=== PATIENT | female | born 1935 | race Caucasian/White ===

== ENCOUNTER 2018-07-06 12:56 | Inpatient (IN) | payer OTHER, MEDICAID ==
[2018-07-06] VITALS (36 sets, daily range): BP systolic 64–168; BP diastolic 31–151
[~2018-07-06] VITALS: Ht 162.6 cm; Wt 85.3 kg
--- NOTE | 2018-07-06 12:50 | NUR ---
PT BIB EMS INTUBATED IN FIELD 7.0 ET TUBE 21CM PT IN FULL ARREST PLACED ON CARESCAPE ON DOCUMENTED SETTINGS ALARMS ARE ON AND AUDIBLE BS CRACKLES PT IN HF NOT ALERT VENT PLUGGED INTO RED OUTLET BMV HOB SPO2 COULD NOT BE OBTAINED JOURNALISM TEACHER DONE Addendum: 07/06/18 at 1358 by Leslye Morales RT SPO2 [id number]
[~2018-07-06 12:56] MED LIST: CARV12.5 PO; LEVO0.1212 PO; METF500T2 PO
--- NOTE | 2018-07-06 13:00 | NUR ---
[facility] MADE CONTACT WITH [facility]--- FULL ARREST WITH 3 ROUNDS OF EPI AND PEA MD NOTIFIED OF PENDING ARRIVAL. PT WAS UNRESPONSIVE WHEN PT GOT TO HOSPITAL WITH [facility] AND CPR WAS IN PROCESS, DOES NOT OPEN EYES, DOES NOT FOLLOW ANY COMMANDS. HOOKED PT TO BEDSIDE MONITOR. CONTINUED CPR. PT LOOKED PALE AND SKIN COOL TO TOUCH. DR. PITT, RT AND RNs ARE AT BEDSIDE.
--- NOTE | 2018-07-06 13:16 | NUR ---
STARTED TO CPR AGAIN, SEE CODE BLUE RECORD.
[2018-07-06] MEDS ORDERED: SODIUM BICARBONATE 8.4% PFS 50 MEQ/50 ML SYR IVP ONE (13:40)
[2018-07-06] MEDS ORDERED: MAG SULF 2000 MG/WATER PREMIX 50 ML IV ONE ×2 (13:40→19:00)
[2018-07-06] MEDS ORDERED: methylPREDNISolone SS 125 MG/2 ML VIAL IVP ONE (13:40)
--- NOTE | 2018-07-06 13:47 | NUR ---
LUNCH BREAK, REPORT GIVEN TO SATINDER PINEDA.
[2018-07-06] MEDS ORDERED: DOPamine 400 MG/D5W PREMIX 250 ML IV ONE ×2 (14:10→20:39)
--- NOTE | 2018-07-06 14:49 | NUR ---
PT BP 60/39, HR 67, O2 SAT 92 %. RR 13. INCREASED DOPAMINE DRIP FROM 5 MCG/KG/MIN TO 10 MCG/KG/MIN.
[2018-07-06 14:54] LABS: MAGNESIUM 1.4 mg/dL (1.8-2.4)
[2018-07-06 15:00] LABS: ALBUMIN 1.5 g/dL (3.4-5.0); ANION GAP 15.8 (8-16); ASPARTATE AMINOTRANSFERASE 118 U/L (15-37); CHLORIDE 100 mmol/L (98-107); CREATININE 0.9 mg/dL (0.6-1.3); GLUCOSE 234 mg/dL (74-106); POTASSIUM 3.8 mmol/L (3.5-5.1); SODIUM SERUM 134 mmol/L (136-145); TOTAL BILIRUBIN 0.3 mg/dL (0.0-1.0); UREA NITROGEN, BLOOD 19 mg/dL (7-18)
[2018-07-06 15:19] LABS: ACETONE, SERUM NEGATIVE (NEGATIVE)
--- NOTE | 2018-07-06 15:31 | NUR ---
INCREASED DOPAMINE FROM 10 MCG/KG/MIN TO 15 MCG/KG/MIN.
[2018-07-06] MEDS ORDERED: NACL 0.9% 1,000 ML IV SCH (15:34)
[2018-07-06] MEDS ORDERED: ACETAMINOPHEN 325 MG TAB PO PRN (15:35)
[2018-07-06] MEDS ORDERED: DOCUSATE SODIUM 100 MG GELCAP PO PRN (15:35)
[2018-07-06] MEDS ORDERED: HYDROcodone/APAP 7.5/325 MG 1 TAB PO PRN (15:35)
[2018-07-06] MEDS ORDERED: ONDANSETRON 4 MG/2 ML VIAL IM/IVP PRN (15:35)
[2018-07-06 15:40] LABS: EOSINOPHILS # (AUTO) 0.1 K/uL (0-0.4); LYMPHOCYTES # (AUTO) 1.5 K/uL (2.5-16.5); WHITE BLOOD COUNT (AUTO) 14.7 K/uL (4.8-10.8)
[2018-07-06 15:46] LABS: BASOPHILS % (AUTO) 0.3 % (0.0-2.0); EOSINOPHILS % (AUTO) 0.7 % (0.0-4.0); HEMATOCRIT 32.3 % (36-48); HEMOGLOBIN 10.1 g/dL (12.0-16.0); LYMPHOCYTES % (AUTO) 10.2 % (20.5-51.1); MEAN CORPUSCULAR HEMOGLOBIN 25 pg (27-31); MEAN CORPUSCULAR HGB CONC 31 g/dL (33-37); MEAN CORPUSCULAR VOLUME 79.9 fL (80-94); MONOCYTES # (AUTO) 0.5 K/uL (0.8-1.0); MONOCYTES % (AUTO) 3.5 % (1.7-9.3); NEUTROPHILS # (AUTO) 12.6 K/uL (1.8-7.7); NEUTROPHILS % (AUTO) 85.3 % (42.2-75.2); PLATELET COUNT (AUTO) 170 K/uL (140-450); RED BLOOD CELL COUNT(AUTO) 4.04 MIL/uL (4.20-5.40); RED CELL DISTRIBUTION WIDTH 15.5 % (11.6-13.7)
--- NOTE | 2018-07-06 15:50 | NUR ---
PT LEFT FOR CT, ACCOMPANIED WITH TWO RTs, SKID STRAPPER, RN, EMT. THEN TRNASFER PT TO ICU BED 5.
[2018-07-06 15:56] LABS: PROTHROMBIN TIME 17.5 secs (10.8-13.4)
--- NOTE | 2018-07-06 16:10 | NUR ---
PT GOT TO ICU, REPORT GIVEN TO LIU PINEDA.
--- NOTE | 2018-07-06 16:15 | NUR ---
RECEIVED PT TRANSFERRED FROM ED VIA RNIXON, REPORT OBTAINED FROM MIRIAM GROSS AT BEDSIDE, PT IS LETHARGIC, PERRL, OPEN EYES TO SHAKING, UNABLE TO FOLLOW COMMANDS, TEMP 91.0 F, HR 93, BP 73/46, RR 27, O2 SAT 90%, FLACC 0, ETT TO VENT WITH SETTING AC/VC FIO2 100%, TV 450, DIMINISHED LUNG SOUND SOLO. SR ON FITTING ROOM INSPECTOR, CAPILLARY REFILL <3 SECONDS, LARGE DISTENDED ABDOMEN NOTED, ACTIVE BOWEL SOUNDS, INCONTINENT WITH CLOUDY LIGHT SABINO URINE VIA GRAVITY, SKIN IS INTACT, COOL IN TOUCH, ANTONIA HUGGER IN PLACE, SEVERE WEAKNESS TO ALL EXTREMITIES, IV SITE TO RIGHT AC, 22GA, PATENT, RUNNING DOPAMINE AT 15MCG/KG/MIN, IV SITE TO LEFT UPPER ARM, 20GA, PATENT AND SL. HOB ELEVATED 30 DEGREES, SAFETY MEASURES IN PLACE, WILL CONTINUE TO MONITOR.
[2018-07-06 16:31] LABS: CHOL/HDL RATIO 4.4 (1-4.5); PHOSPHORUS 5.6 mg/dL (2.5-4.9)
[2018-07-06 16:32] LABS: THYROID STIMULATING HORMONE 6.84 uIU/mL (0.34-3.74)
--- NOTE | 2018-07-06 16:45 | NUR ---
RANGEL CATHETER INSERTED ORDERED.
--- NOTE | 2018-07-06 17:05 | NUR ---
CENTRAL LINE INSERTION CONSENT OBTAINED BY PT'S SON, SIVAKUMAR, DR. NUGENT EXPLAINED THE PROCEDURE TO HIM, HE VERBALIZED UNDERSTANDING AND SIGNED THE CONSENT.
--- NOTE | 2018-07-06 17:12 | NUR ---
DR. JOHANSEN CAME IN TO SEE PT AT BEDSIDE, UPDATED PT'S CONDITION, WILL FOLLOW UP WITH NEW ORDERS.
--- NOTE | 2018-07-06 17:32 | NUR ---
ECHO DONE AT BEDSIDE.
--- NOTE | 2018-07-06 17:40 | NUR ---
TIME OUT FOR CENTRAL LINE INSERTION AT BEDSIDE, DR. NUGENT IS DOING THE PROCEDURE AND DONE AT BEDSIDE, TECH AND RN AT BEDSIDE.
--- NOTE | 2018-07-06 18:18 | NUR ---
Telemarketer Supervisor Note: I was informed by Local Truck Driver Arnulfo there were two family members who alleged they were patient's power of senior attorney health care agents and were arguing. I met with patient's daughter Evelia Elam (speaks Hungarian). She provided me with power of senior attorney health care documents. Documents list her as primary agent (dated on 2014). I explained to her I was going to meet with her brother Naldo Navarro and review his documents as well. She verbalized understanding. I met with patient's son Naldo Navarro (speaks Hungarian), he also provided me with power of senior attorney health care documents. These documents (dated on 2015) indicate he is patient's primary agent. He also provided me with documents that state patient revokes any power of senior attorney health care documents completed prior to 2015. He stated he is in agreement with any family members visiting patient at our hospital and is not prohibiting anyone from visiting. I explained to him that as healthcare providers we believe in allowing all family members to visit patient. I told him to please make effort to put their personal differences aside. He agreed and stated he did not have any concerns at this time. I went back and met with Evelia, I explained to her my conversation with her brother Naldo. As I was speaking with Evelia, patient's other daughter Teagan Alex interrupted my conversation with Evelia and told Evelia she was the reason why patient was in the condition she was in. They both began to argue and insult each other. I instructed them to stop and advised them not to be in the same room to avoid conflict. As Evelia proceeded to leave room, Teagan began to clap her hands and called her "stupid" in Hungarian. Evelia then responded to Teagan by saying she should learn to have manners. I once again told them to stop and explained to them that if they continue to display inappropriate behavior or be disturbing we had the right to request for them to leave hospital and/or take any other necessary action/s to avoid verbal/physical violence from occurring. I encouraged both of them to try to be respectful. They verbalized understanding. I informed both Charge Nurse Joselyn and Local Truck Driver Arnulfo of the above information.
--- NOTE | 2018-07-06 18:43 | NUR ---
CENTRAL LINE INSERTED TO RIGHT INTERJUGULAR VEIN BY DR. NUGENT, X-RAY ORDERED FOR PLACEMENT.
[2018-07-06 18:44] LABS: APPEARANCE,URINE CLEAR (CLEAR); BILIRUBIN,URINE NEGATIVE (NEGATIVE); BLOOD, URINE 2+ (NEGATIVE); COLOR,URINE YELLOW (YELLOW); LEUKOCYTE ESTERASE ,URINE NEGATIVE (NEGATIVE); NITRITE, URINE NEGATIVE (NEGATIVE); UGLUCOSE NEGATIVE (NEGATIVE)
[2018-07-06 18:47] LABS: RBC,URINE 0-5 (RARE) /HPF (0-5); URINE AMORPHOUS URATE 1+ /HPF (None Seen); WBC,URINE 0-5 (RARE) /HPF (0-5)
[2018-07-06] MEDS: CLINDAMYCIN PHOS 600MG/D5W PM 50 ML IV SCH ×2 (18:49→23:34)
[2018-07-06] MEDS ORDERED: DEXTROSE 50% 50 ML SYR IVP PRN (19:00)
[2018-07-06] MEDS ORDERED: LEVOFLOXACIN 500 MG/D5W PREMIX 100 ML IV SCH (19:00)
--- NOTE | 2018-07-06 19:20 | NUR ---
REPORT GIVEN TO PARTS CONSULTANT NURSE AT BEDSIDE FOR CONTINUE OF CARE.
--- NOTE | 2018-07-06 19:30 | NUR ---
RECEIVED BEDSIDE REPORT FROM MORNING NURSE. PATIENT LETHARGIC, OPENS HER EYE WITH PAIN BUT NOT TRACKING. ETT TO VENT WITH AC MODE FIO2 100%, VT 450, RATE 20, PEEP OFF. NGT TO LEFT NARES, PLACEMENT CHECKED. RHONCHI BILATERAL LUNGS SOUND NOTED. RIGHT IJ IN PLACE BUT NOT X RAY CONFIRM YET. PERIPHERAL LINES TO LEFT UPPER ARM 20G AND RIGHT AC 20G WITH DOPAMINE DRIP WITH 15MCG/KG/MIN AND NS 60ML/HR. DISTENDED ABDOMEN NOTED WITH HYPOACTIVE BOWEL SOUND. RANGEL CATH IN PLACE. TEMP 92.7 VIA RECTALLY. WAITING FOR ANTONIA HUGGER. HOB ELEVATED 15 DEGREE, BED IN LOW POSITION. CALL LIGHT WITHIN REACH. WILL CONTINUE TO MONITOR.
[2018-07-06] MEDS: DOPamine 400 MG/D5W PREMIX 250 ML IV SCH (20:53)
[2018-07-06] MEDS: BLOOD GLUCOSE MONITORING 1 DEV DEV FS SCH (20:54)
[2018-07-06] MEDS ORDERED: CALCIUM ACETATE 667 MG TAB NG SCH (23:00)
[2018-07-06] MEDS ORDERED: LACTULOSE 20 GM/30 ML UDC NG SCH (23:00)
[2018-07-06] MEDS ORDERED: HEPARIN PER PHARMACY MC PRN (23:35)
[2018-07-06] MEDS ORDERED: hePARIN / DEXT 5% PREMIX 250 ML IV SCH ×2 (23:35→23:55)
[2018-07-07] VITALS (105 sets, daily range): BP systolic 85–169; BP diastolic 35–89
--- NOTE | 2018-07-07 00:10 | NUR ---
ADMINISTERED IV ABX ORDERED. NO REACTION NOTED. NO ACUTE DISTRESS NOTED. FLACC 0. WILL CONTINUE TO MONITOR.
--- NOTE | 2018-07-07 00:50 | NUR ---
PATIENT VOMITED COFFEE GROUND COLOR EMESIS, NOTIFIED DR. QUIÑONES.
--- NOTE | 2018-07-07 04:10 | NUR ---
EKG RHYTHM VERIFIED WITH WOOD WEB WEAVING MACHINE OPERATOR IN TELE PJC'S NOTED IN RHYTHM.
--- NOTE | 2018-07-07 04:35 | NUR ---
STARTED DOPAMINE DRIP FOR HYPOTENSION ORDERED BY DR. QUIÑONES. WILL CONTINUE TO MONITOR. Addendum: 07/07/18 at 0555 by Josue Rose RN WRONG PATIENT/ DISCARD
--- NOTE | 2018-07-07 05:15 | NUR ---
STOPPED DOPAMINE DRIP DUE TO HR [address] QUIÑONES[address] WILL FOLLOW ORDER. Addendum: 07/07/18 at 0555 by Josue Rose RN WRONG PATIENT/ DISCARD
[2018-07-07] MEDS: CLINDAMYCIN PHOS 600MG/D5W PM 50 ML IV SCH ×3 (05:28→17:59)
[2018-07-07 06:21] LABS: MAGNESIUM 1.4 mg/dL (1.8-2.4); PHOSPHORUS 4.3 mg/dL (2.5-4.9)
[2018-07-07 06:23] LABS: ANION GAP 16.2 (8-16); CARBON DIOXIDE 24.8 mmol/L (21-32); CHLORIDE 96 mmol/L (98-107); CREATININE 1.2 mg/dL (0.6-1.3); GLUCOSE 244 mg/dL (74-106); SODIUM SERUM 133 mmol/L (136-145); UREA NITROGEN, BLOOD 25 mg/dL (7-18)
--- NOTE | 2018-07-07 06:24 | NUR ---
RECEIVED PT ON CARESCAPE ON DOCUMENTED SETTINGS, ALARMS ARE ON AND AUDIBLE, PTS ET TUBE SIZE 7.0 IS SECURE 21 CM ANCHOR FAST IN PLACE, BS CRACKLES PT IN HF NOT ALERT AT THIS TIME, BMV HOB VENT PLUGGED INTO RED OUTLET
[2018-07-07] MEDS: DEXT 5% / NACL 0.9% 500 ML IV SCH ×3 (06:50→18:41)
[2018-07-07] MEDS: BLOOD GLUCOSE MONITORING 1 DEV DEV FS SCH ×4 (06:51→21:30)
[2018-07-07] MEDS: INSULIN LISPRO SLIDING SCALE 100 UNITS/ML VIAL SUBQ PRN ×3 (06:52→21:32)
[2018-07-07 07:00] LABS: HEMATOCRIT 35.9 % (36-48); HEMOGLOBIN 11.3 g/dL (12.0-16.0); LYMPHOCYTES # (AUTO) 0.7 K/uL (2.5-16.5); LYMPHOCYTES % (AUTO) 4.9 % (20.5-51.1); MEAN CORPUSCULAR HEMOGLOBIN 25 pg (27-31); MEAN CORPUSCULAR HGB CONC 31 g/dL (33-37); MEAN CORPUSCULAR VOLUME 77.9 fL (80-94); MONOCYTES # (AUTO) 0.7 K/uL (0.8-1.0); MONOCYTES % (AUTO) 4.9 % (1.7-9.3); NEUTROPHILS # (AUTO) 12.4 K/uL (1.8-7.7); NEUTROPHILS % (AUTO) 90.2 % (42.2-75.2); PLATELET COUNT (AUTO) 152 K/uL (140-450); RED BLOOD CELL COUNT(AUTO) 4.61 MIL/uL (4.20-5.40); RED CELL DISTRIBUTION WIDTH 15.7 % (11.6-13.7); WHITE BLOOD COUNT (AUTO) 13.7 K/uL (4.8-10.8)
--- NOTE | 2018-07-07 07:01 | NUR ---
RECEIVED PATIENT FROM INTELLIGENCE ANALYST RN, MELISSA, FOR CONTINUITY OF CARE. PATIENT IS UNRESPONSIVE TO PAINFUL STIMULI, OPENS EYES BUT NO TRACKING, UNABLE TO MAKE NEEDS KNOWN OR FOLLOW COMMANDS. PATIENT SKIN IS WARM, DRY, INTACT. HAS PERIPHERAL IV SITE TO GABBI, 20 GAUGE, AND RAC, 20 GAUGE, BOTH ASYMPTOMATIC AND PATENT. PATIENT HAS ETT TO VENT, SETTINGS FIO2 100%, RATE 20, TV 450, PEEP 5. BREATHING EVEN AND UNLABORED. ST ON MONITOR, FLACC 0. NGT TO LEFT NARES, NO RESIDUAL NOTED. RANGEL CATHETER IN PLACE, 400 ML OUTPUT SINCE ADMISSION, PER INTELLIGENCE ANALYST RN. SAFETY PRECAUTIONS AND ALARMS ASSESSED AND ENFORCED. HOB 30 DEGREES. NO SIGNS OF DISTRESS NOTED.
[2018-07-07] MEDS: DOPamine 400 MG/D5W PREMIX 250 ML IV SCH ×2 (07:33→21:32)
--- NOTE | 2018-07-07 08:04 | NUR ---
DR. LEAL AND RESIDENT PHYSICIANS AT BEDSIDE TO ROUND ON PATIENT, WILL FOLLOW UP ON ANY ORDERS.
--- NOTE | 2018-07-07 08:14 | NUR ---
PATIENT HAS BEEN SCREENED AND CATEGORIZED HIGH NUTRITION RISK. PATIENT WILL BE SEEN WITHIN 1-2 DAYS OF ADMISSION. 07/07/18-07/08/[address]
--- NOTE | 2018-07-07 08:57 | NUR ---
Tank Hoop Bender Note: I informed Manager Utilities Nohemy there are no visitor restrictions at this time. Per Nohemy, she will make sure one visitor is allowed at a time and remind family members they will be escorted out of hospital if there is an altercation between them.
[2018-07-07] MEDS ORDERED: hePARIN / DEXT 5% PREMIX 250 ML IV SCH (09:00)
[2018-07-07] MEDS: PANTOPRAZOLE 40 MG INJ VIAL IVP SCH (09:03)
[2018-07-07] MEDS: LACTOBACILLUS RHAMNOSUS GG 1 EACH CAP NG SCH (09:03)
[2018-07-07] MEDS: CLINICAL MONITORING MC SCH (09:23)
--- NOTE | 2018-07-07 10:28 | NUR ---
DR. SALVADOR IN TO SEE AND EXAMINE PATIENT, UPDATED ON PATIENT'S CONDITION. WILL FOLLOW UP ON ANY ORDERS.
[2018-07-07] MEDS ORDERED: MAG SULF 2000 MG/WATER PREMIX 50 ML IV SCH (11:02)
[2018-07-07] MEDS ORDERED: MAGNESIUM OXIDE 400 MG TAB NG SCH (11:03)
--- NOTE | 2018-07-07 11:15 | NUR ---
PATIENT FAMILY AT BEDSIDE, UPDATED ON PATIENT'S CONDITION
--- NOTE | 2018-07-07 12:05 | NUR ---
Interventional Radiologist Note: I was informed by MIRIAM Saunders patient's daughter Teagan Alex wanted to speak with me. I met with Teagan at patient's bedside. Teagan speaks Bahraini. She apologized for yesterday's incident and stated she was extremely upset and was difficult for her to control her emotions. I told her I understood and thanked her for apologizing. She requested a verification of hospitalization letter for her sister Keyana Rocha (patient's other daughter) who lives in [place]. I provided Teagan with letter.
--- NOTE | 2018-07-07 12:27 | NUR ---
US TECH AT BEDSIDE.
--- NOTE | 2018-07-07 13:12 | NUR ---
07/07/18 RD INITIAL ASSESSMENT COMPLETED PLEASE REFER TO NUTRITION ASSESSMENT UNDER CARE ACTIVITY FOR ESTIMATED NUTRITIONAL NEEDS. 1. CONTINUE NPO UNTIL MEDICALLY APPROPRIATE TO BEGIN NUTRITION 2. WHEN/IF PATIENT MEDICALLY STABLE TO BEGIN NUTRITION, RECOMMEND VITAL AF 1.2 @ 60 ML/HR X 24 HRS. - THIS WILL PROVIDE 1728 KCALS AND 108 G PROTEIN. THIS WILL MEET 100% OF ESIMATED ENERGY AND PROTEIN NEEDS 3. RECOMMEND FLUSH [address] TO FOLLOW-UP 2-3 DAYS, HIGH RISK INOCENCIA THOMAS RD
--- NOTE | 2018-07-07 16:30 | NUR ---
PATIENT FAMILY AT BEDSIDE, UPDATED ON PATIENT'S CONDITION
--- NOTE | 2018-07-07 16:42 | NUR ---
DECREASED FIO2 TO 90 SPO2 94
[2018-07-07] MEDS ORDERED: DONE5TAB6 PO (18:04)
[2018-07-07] MEDS ORDERED: METF500T2 PO (18:04)
[2018-07-07] MEDS ORDERED: CARV6.25 PO (18:04)
[2018-07-07] MEDS ORDERED: MEMA10TA PO (18:04)
--- NOTE | 2018-07-07 18:26 | NUR ---
PPT WAS 127, HEPARIN DRIP ON HOLD
[2018-07-07] MEDS ORDERED: levETIRAcetam 1,000 MG in NACL 0.9% 100 ML IV SCH (18:30)
--- NOTE | 2018-07-07 18:50 | NUR ---
DR. VILLALOBOS AT BEDSIDE, WILL FOLLOW UP ON ANY ORDERS
--- NOTE | 2018-07-07 19:21 | NUR ---
ENDORSED CONTINUITY OF CARE TO GRINDER TENDER RN, MELISSA, FOR CONTINUITY OF CARE
--- NOTE | 2018-07-07 19:25 | NUR ---
RECEIVED BEDSIDE REPORT FROM MORNING NURSE. PATIENT LETHARGIC, OPENS HER EYE WITH PAIN BUT NOT TRACKING. ETT TO VENT WITH AC MODE FIO2 90%, VT 450, RATE 20, PEEP 6. NGT TO LEFT NARES, PLACEMENT CHECKED, NO RESIDUAL. RHONCHI BILATERAL LUNGS SOUND NOTED. RIGHT IJ IN PLACE WITH RUNNING D5NS 80ML/HR AND DOPAMINE DRIP WITH 7MCG/KG/MIN. PERIPHERAL LINES TO LEFT UPPER ARM 20G AND RIGHT AC 20G. DISTENDED ABDOMEN NOTED WITH HYPOACTIVE BOWEL SOUND. RANGEL CATH IN PLACE. TEMP 97.6 NOTED. SKIN IS WARM TO TOUCH AND INTACT. HOB ELEVATED 15 DEGREE, BED IN LOW POSITION. CALL LIGHT WITHIN REACH. FROM REPORT, OLIGURIA NOTED. WILL CONTINUE TO MONITOR.
[2018-07-07] MEDS: LEVOFLOXACIN 250 MG/D5 PREMIX 50 ML IV SCH (19:29)
[2018-07-07] MEDS ORDERED: METFORMIN HCL PO SCH (21:00)
[2018-07-07] MEDS: levETIRAcetam 1,000 MG in NACL 0.9% 100 ML IV SCH (21:30)
[2018-07-07] MEDS: CARVEDILOL 6.25 MG TAB PO SCH (21:30)
--- NOTE | 2018-07-07 21:40 | NUR ---
ADMINISTERED SCHEDULED MEDICATIONS ORDERED. BS CHECKED 246 NOTED, ADMINISTERED INSULIN S/S. FAMILY AT BEDSIDE. NO ACUTE DISTRESS NOTED. WILL CONTINUE TO MONITOR.
[2018-07-08] VITALS (103 sets, daily range): BP systolic 69–136; BP diastolic 30–82
[2018-07-08] MEDS: CLINDAMYCIN PHOS 600MG/D5W PM 50 ML IV SCH ×4 (00:07→17:36)
--- NOTE | 2018-07-08 00:10 | NUR ---
ADMINISTERED SCHEDULED IV ABX ORDERED. PATIENT TOLERATED WELL WITH VENT. FLACC 0. STILL UNRESPONSIVE. WILL CONTINUE TO MONITOR.
[2018-07-08] MEDS: DEXT 5% / NACL 0.9% 500 ML IV SCH (01:27)
--- NOTE | 2018-07-08 01:55 | NUR ---
NOTIFIED TO ABOUT OLIGURIA, URINE OUT PUT ONLY 30ML IN 6HRS.
[2018-07-08] MEDS: levETIRAcetam 1,000 MG in NACL 0.9% 100 ML IV SCH ×3 (05:26→23:29)
[2018-07-08 06:03] LABS: ALBUMIN 1.7 g/dL (3.4-5.0); ANION GAP 14.8 (8-16); ASPARTATE AMINOTRANSFERASE 117 U/L (15-37); CARBON DIOXIDE 24.2 mmol/L (21-32); CHLORIDE 96 mmol/L (98-107); CREATININE 1.9 mg/dL (0.6-1.3); GLUCOSE 265 mg/dL (74-106); MAGNESIUM 1.9 mg/dL (1.8-2.4); PHOSPHORUS 4.7 mg/dL (2.5-4.9); SODIUM SERUM 131 mmol/L (136-145); TOTAL BILIRUBIN 0.6 mg/dL (0.0-1.0); UREA NITROGEN, BLOOD 39 mg/dL (7-18)
[2018-07-08 06:23] LABS: PROTHROMBIN TIME 12.4 secs (10.8-13.4)
[2018-07-08] MEDS ORDERED: LEVOTHYROXINE 0.05 MG TAB PO SCH (06:30)
[2018-07-08 06:45] LABS: HEMATOCRIT 30.6 % (36-48); HEMOGLOBIN 9.7 g/dL (12.0-16.0); RED BLOOD CELL COUNT(AUTO) 3.94 MIL/uL (4.20-5.40); WHITE BLOOD COUNT (AUTO) 15.8 K/uL (4.8-10.8)
[2018-07-08 06:46] LABS: LYMPHOCYTES % (AUTO) 9.4 % (20.5-51.1); MEAN CORPUSCULAR HEMOGLOBIN 25 pg (27-31); MEAN CORPUSCULAR HGB CONC 32 g/dL (33-37); MEAN CORPUSCULAR VOLUME 77.5 fL (80-94); MONOCYTES % (AUTO) 5.2 % (1.7-9.3); NEUTROPHILS % (AUTO) 85.3 % (42.2-75.2); PLATELET COUNT (AUTO) 124 K/uL (140-450); RED CELL DISTRIBUTION WIDTH 15.7 % (11.6-13.7)
[2018-07-08 06:47] LABS: BASOPHILS % (AUTO) 0.1 % (0.0-2.0); LYMPHOCYTES # (AUTO) 1.5 K/uL (2.5-16.5); MONOCYTES # (AUTO) 0.8 K/uL (0.8-1.0); NEUTROPHILS # (AUTO) 13.5 K/uL (1.8-7.7)
[2018-07-08] MEDS ORDERED: PROBIOTIC SCREEN 1 EA MISC MC PRN (08:00)
--- NOTE | 2018-07-08 08:00 | NUR ---
PATIENT OPENS EYES TO PAIN BUT NO TRACKING, NO MOTOR MOVEMENTS, INTUBATED ON VENTILATOR FIO2 90% TIDAL VOLUME 450 PEEP 5 AC 20. RONCHI AUSCULTATED ON ALL ANTERIOR CHEST CROOK, SINUS RHYTHM ON MONITOR, WITH NASOGASTRIC TUBE LEFT NARES-PATENT ON AUSCULTATION AND NO ASPIRATES, SOFT ABDOMEN, WITH RANGEL CATHETER DRAINING YELLOW URINE OUTPUT TO UROBAG, WITH CENTRAL LINE TRIPLE LUMEN RIGHT INTERNAL JUGULAR ,DOPAMINE INFUSING 10MCG/KG/MIN. 71 KGS. IN THE IV PUMP, D5NS AT 80CC/HR. INFUSING, PERIPHERAL LINES: GAUGE 22 AT RIGHT ARM, LEFT UPPER ARM GAUGE 20, LEFT LOWER ARM GAUGE 20 ALL PERIPHERAL LINES SALINE LOCKED AND ALL SITES CLEAN. BOTH LEGS WITH SCDs, BRUISING AT LEFT NECK
[2018-07-08] MEDS: BLOOD GLUCOSE MONITORING 1 DEV DEV FS SCH ×4 (08:03→21:00)
[2018-07-08] MEDS: INSULIN LISPRO SLIDING SCALE 100 UNITS/ML VIAL SUBQ PRN ×3 (08:05→17:07)
[2018-07-08] MEDS ORDERED: METF500T2 PO (08:17)
--- NOTE | 2018-07-08 08:35 | NUR ---
RECEIVED ON A smsPREPSCAPE R860 VENTILATOR PLUGGED INTO RED OUTLET TOLERATING WELL WITHOUT ADVERSE REACTIONS NOTED TO AN ENDOTRACHEAL TUBE #7.0 SECURED AT 20cm WITH AN ANCHOR FAST AMBU BAG NOTED AT HOB LOC NON RESPONSIVE BREATH SOUNDS COARSE RHONCHI BILATERAL WITH GOOD CHEST RISE ENDOTRACHEAL SUCTION FOR MODERATE THICK YELLOW WITH BLOOD STREAKS SECRETIONS AIRWAY PATENT EEG IN PROGRESS TECH AT BEDSIDE
--- NOTE | 2018-07-08 08:55 | NUR ---
Dr. Wesley at bedside for rounds
[2018-07-08] MEDS ORDERED: metFORMIN 500 MG TAB NG SCH (09:00)
[2018-07-08] MEDS ORDERED: LACTULOSE 20 GM/30 ML UDC NG SCH (09:00)
[2018-07-08] MEDS: CLINICAL MONITORING MC SCH (09:00)
[2018-07-08] MEDS: CARVEDILOL 6.25 MG TAB PO SCH ×2 (09:00→23:30)
--- NOTE | 2018-07-08 09:00 | NUR ---
electrophysiology technician at bedside for EEG
[2018-07-08] MEDS: PANTOPRAZOLE 40 MG INJ VIAL IVP SCH (09:08)
[2018-07-08] MEDS: LACTOBACILLUS RHAMNOSUS GG 1 EACH CAP NG SCH (09:09)
[2018-07-08] MEDS: MEMANTINE 10 MG TAB PO SCH (09:09)
[2018-07-08] MEDS: DONEPEZIL 10 MG TAB PO SCH (09:09)
--- NOTE | 2018-07-08 09:15 | NUR ---
DR. NUGENT, RT [facility] MADE AWARE PATIENT SO2 RIGHT NOW IN THE MID 80s
[2018-07-08] MEDS: DOPamine 400 MG/D5W PREMIX 250 ML IV SCH ×2 (09:17→18:33)
--- NOTE | 2018-07-08 09:58 | NUR ---
LOC UNCHANGED GOOD CHEST RISE ENDOTRACHEAL SUCTION FOR MODERATE THICK YELLOW WITH BLOOD STREAK SECRETIONS AIRWAY PATENT SATURATIO Addendum: 07/08/18 at 1006 by Kushal Watts RT SATURATION 86% ON FIO2 OF 90% INCREASED FIO2 TO 100% SAKSHI NOTIFIED
--- NOTE | 2018-07-08 10:54 | NUR ---
PRIOR AUTHORIZATION NURSE DR. CARRENO AT BEDSIDE
[2018-07-08] MEDS ORDERED: METOLAZONE 5 MG TAB PO SCH (11:01)
[2018-07-08] MEDS ORDERED: FUROSEMIDE 100 MG/10 ML VIAL IV SCH (11:05)
--- NOTE | 2018-07-08 11:30 | NUR ---
RIGHT SIDED THORACENTESIS BEING DONE AT BEDSIDE BY RADIOLOGY PHYSICIAN. WITH TELEPHONE CONSENT BY PATIENT'S SON ARIANNA HE CANNOT COME TO THE HOSPITAL
[2018-07-08] MEDS: DEXT 5% /NACL 0.9% 1,000 ML IV SCH (12:09)
--- NOTE | 2018-07-08 13:19 | NUR ---
DR. NUGENT MADE AWARE OF PATIENT'S SATURATION OF LOW 80'S, ON FIO2 100%. WILL FOLLOW UP WITH ORDERS.
[2018-07-08] MEDS: NOREPINEPHRINE 16 MG in DEXTROSE 5% 250 ML IV PRN (13:43)
--- NOTE | 2018-07-08 13:56 | NUR ---
DR. BINGHAM AT BEDSIDE AND SPOKE WITH FAMILY
--- NOTE | 2018-07-08 14:00 | NUR ---
DR BINGHAM AT BEDSIDE FOR PATIENT EVALUATION THEREAFTER SPEAKING WITH FAMILY ON PATIENT PROGNOSIS GOOD CHEST RISE ENDOTRACHEAL SUCTION FOR SMALL THICK YELLOW WITH BLOOD TINGE SECRETIONS AIRWAY PATENT INCREASED PEEP TO 8cmH2O (REVIEWED B/P) AND PEAK FLOW TO 60
--- NOTE | 2018-07-08 15:00 | NUR ---
Chemical Treatment Plant Technician Note: I was informed by administrator health care facility [facility] patient's family were attempting to locate a radio electronics officer to come to hospital. [facility] reported patient has poor prognosis. I met with patient's daughter Teagan and her son Constantino at bedside. Teagan was tearful she stated Martín has been making phone calls to [employer] to locate a radio electronics officer to come to hospital and they do not need assistance finding a radio electronics officer at this time. I explained to her I wanted to provide brief information about hospice services to her brother Naldo and the rest of their family in case they were interested in hospice services. I told her I was first going to contact her Naldo as he is the health care decision maker. She verbalized understanding. I called and spoke with Naldo (speaks Thai). He stated had explained to him and his family patient had poor prognosis. He told me his nephew Constantino was able to locate a radio electronics officer who can come to hospital and offer his services to patient. I explained to him that I wanted to know if he or his family needed executive secretary social welfare assistance. He responded that he was thankful for my assistance and for speaking with him and his family during difficult times. He thanked me for being understanding and caring. I told him I was glad I could assist them. I explained to him that I understood he wanted patient to be full code, however, wanted him to have the opportunity to obtain information about hospice services. I asked him if he was familiar with hospice services. He replied he was not. I provided him with brief information about it and offered to contact a hospice student services representative to provide him and his family with additional information about hospice. He agreed to meet with [facility] student services representative (in case GIP is needed) and obtain information about their services. I told him not to feel pressure about signing up for hospice services. I faxed inquiry to [facility]. I called and spoke with Clarissa from [facility] . She stated she and Sujatha from their company will meet with patient�s son Naldo and his family today at hospital, charge nurse Nicky made aware.
[2018-07-08] MEDS: FUROSEMIDE 100 MG in DEXTROSE 5% 100 ML IV SCH (15:28)
--- NOTE | 2018-07-08 16:17 | NUR ---
NO CHANGE LOC FROM PREVIOUS GOOD CHEST RISE NO SUCTIONING AT THIS TIME BILINGUAL CUSTOMER SERVICE SPECIALIST TO MONITOR
--- NOTE | 2018-07-08 17:30 | NUR ---
PM CARE, ORAL CARE AND SLIGHT REPOSITIONING DONE. PATIENT TOLERATED
--- NOTE | 2018-07-08 17:35 | NUR ---
Milanese Knitting Machine Operator Note: Per patient's son Naldo Edwards , his sister Teagan and he met with [facility] representatives. He stated he is open to hospice services. However, he would like to consult with his other sister Keyana Edwards who lives in [place] regarding this decision. Keyana is attempting to come to the [place] and Naldo will find out tomorrow if Keyana is granted with a visa to travel to [facility]. He told me Teagan is still hopeful patient will recover from her medical condition. He expressed he does not feel comfortable making a medical decision on his own without consulting with Keyana first. He asked me if I could please contact his sister Evelia Elam and provide her with an update regarding our conversation. I told him that in my opinion it would be best for him, Evelia, and I to have a discussion regarding patient's plan of care and their medical wishes tomorrow. He agreed. He thanked me for my assistance. I called and spoke with patient's daughter Evelia Elam . She stated she is planning to visit patient later today at hospital to obtain an update on patient's current medical condition. I asked her if she would be willing to speak with his brother Naldo and I to discuss and address patient's plan of care, their questions, and concerns. She agreed to meet with Naldo and I. She reported she is available tomorrow at 1pm and would be willing to be flexible with time in case Naldo cannot meet at that time. I will contact Naldo tomorrow and coordinate family meeting.
--- NOTE | 2018-07-08 17:43 | NUR ---
GOOD CHEST RISE ENDOTRACHEAL SUCTION FOR MODERATE THICK YELLOW WITH BLOOD STREAK SECRETIONS AIRWAY PATENT
[2018-07-08 18:33] LABS: RED CELL DISTRIBUTION WIDTH 16.3 % (11.6-13.7)
[2018-07-08] MEDS: LEVOFLOXACIN 250 MG/D5 PREMIX 50 ML IV SCH (18:35)
--- NOTE | 2018-07-08 18:49 | NUR ---
DR. FRASER AWARE US CAROTIDS NOT DONE DUE TO RIGHT SIDED CAROTID CANNOT BE CHECKED DUE TO PRESENCE OF IJ CENTRAL LINE ACCORDING TO US CUSTOMER RELATIONS ADVISOR
[2018-07-08 18:52] LABS: HEMATOCRIT 36.7 % (36-48); HEMOGLOBIN 11.4 g/dL (12.0-16.0); MEAN CORPUSCULAR HEMOGLOBIN 25 pg (27-31); MEAN CORPUSCULAR HGB CONC 31 g/dL (33-37); MEAN CORPUSCULAR VOLUME 79.2 fL (80-94); PLATELET COUNT (AUTO) 87 K/uL (140-450); RED BLOOD CELL COUNT(AUTO) 4.64 MIL/uL (4.20-5.40); WHITE BLOOD COUNT (AUTO) 20.3 K/uL (4.8-10.8)
[2018-07-08 19:11] LABS: BASOPHILS % (AUTO) 0.1 % (0.0-2.0); EOSINOPHILS % (AUTO) 0.1 % (0.0-4.0); LYMPHOCYTES % (AUTO) 9.7 % (20.5-51.1); MONOCYTES # (AUTO) 1.7 K/uL (0.8-1.0); MONOCYTES % (AUTO) 8.3 % (1.7-9.3); NEUTROPHILS # (AUTO) 16.6 K/uL (1.8-7.7); NEUTROPHILS % (AUTO) 81.8 % (42.2-75.2)
[2018-07-08 19:14] LABS: ALBUMIN 1.9 g/dL (3.4-5.0); BILIRUBIN,DIRECT 0.2 mg/dL (0.0-0.3); TOTAL BILIRUBIN 0.7 mg/dL (0.0-1.0)
--- NOTE | 2018-07-08 19:28 | NUR ---
Report given to night RN
--- NOTE | 2018-07-08 19:30 | NUR ---
RECEIVED REPORT FROM MACKENZIE RN. PT ON LEVO, DOPA, LASIX GTT. INTUBATED ON VENT, NAD
[2018-07-08 20:05] LABS: HEMOGLOBIN 11.3 g/dL (12.0-16.0); MEAN CORPUSCULAR HEMOGLOBIN 25 pg (27-31); MEAN CORPUSCULAR HGB CONC 33 g/dL (33-37); PLATELET COUNT (AUTO) 111 K/uL (140-450); RED BLOOD CELL COUNT(AUTO) 4.34 MIL/uL (4.20-5.40); RED CELL DISTRIBUTION WIDTH 16.5 % (11.6-13.7); WHITE BLOOD COUNT (AUTO) 16.2 K/uL (4.8-10.8)
[2018-07-08 20:06] LABS: LYMPHOCYTES % (AUTO) 8.4 % (20.5-51.1); MONOCYTES % (AUTO) 6.8 % (1.7-9.3)
--- NOTE | 2018-07-08 20:22 | NUR ---
SPOKE TO DR MISHRA RE WBC TRENDING UP
--- NOTE | 2018-07-08 21:00 | NUR ---
DR VILLALOBOS AT BEDSIDE, SPOKE WITH FAMILY
--- NOTE | 2018-07-08 21:50 | NUR ---
PT ON PEEP 8, FIO2 100%, PT UNSTABLE, SX HER MOUTH LARGE WHITE SECRETION
[2018-07-08] MEDS: METOLAZONE 5 MG TAB PO SCH (23:33)
[2018-07-09] VITALS (104 sets, daily range): BP systolic 63–193; BP diastolic 39–94
[2018-07-09] MEDS: CLINDAMYCIN PHOS 600MG/D5W PM 50 ML IV SCH ×5 (02:00→23:06)
--- NOTE | 2018-07-09 03:30 | NUR ---
PT SBP 70-80, LEVO INCREASED
--- NOTE | 2018-07-09 03:55 | NUR ---
PT UNSTABLE, CHANGE HME
--- NOTE | 2018-07-09 04:00 | NUR ---
PT BP AND HR GOING DOWN, PT STARTED ON PHENYLEPHRINE, DR PORTER AT BEDSIDE, ALSO BOLUS GIVEN
[2018-07-09] MEDS ORDERED: NACL 0.9% 500 ML IV SCH (04:10)
[2018-07-09] MEDS ORDERED: PHENYLEPHRINE 10 MG in NACL 0.9% 250 ML IV PRN (04:10)
[2018-07-09] MEDS ORDERED: PHENYLEPHRINE 10 MG/ML VIAL ONE (04:18)
[2018-07-09] MEDS: levETIRAcetam 1,000 MG in NACL 0.9% 100 ML IV SCH ×3 (05:00→20:37)
[2018-07-09 05:55] LABS: ANION GAP 17.8 (8-16); CHLORIDE 97 mmol/L (98-107); CREATININE 2.6 mg/dL (0.6-1.3); POTASSIUM 3.8 mmol/L (3.5-5.1); SODIUM SERUM 128 mmol/L (136-145); UREA NITROGEN, BLOOD 46 mg/dL (7-18)
[2018-07-09 05:59] LABS: MAGNESIUM 1.7 mg/dL (1.8-2.4); PHOSPHORUS 6.2 mg/dL (2.5-4.9)
[2018-07-09 06:12] LABS: GLUCOSE 403 mg/dL (74-106)
--- NOTE | 2018-07-09 06:25 | NUR ---
spoke to dr poonam pederson high glucose serum level, fingerstick done
[2018-07-09 06:26] LABS: HEMATOCRIT 27.8 % (36-48); HEMOGLOBIN 8.5 g/dL (12.0-16.0); LYMPHOCYTES # (AUTO) 1.5 K/uL (2.5-16.5); LYMPHOCYTES % (AUTO) 9.8 % (20.5-51.1); MEAN CORPUSCULAR HEMOGLOBIN 25 pg (27-31); MEAN CORPUSCULAR HGB CONC 31 g/dL (33-37); MEAN CORPUSCULAR VOLUME 79.8 fL (80-94); MONOCYTES # (AUTO) 0.6 K/uL (0.8-1.0); MONOCYTES % (AUTO) 4.2 % (1.7-9.3); NEUTROPHILS # (AUTO) 12.8 K/uL (1.8-7.7); PLATELET COUNT (AUTO) 71 K/uL (140-450); RED BLOOD CELL COUNT(AUTO) 3.49 MIL/uL (4.20-5.40); RED CELL DISTRIBUTION WIDTH 16.4 % (11.6-13.7)
[2018-07-09] MEDS: LEVOTHYROXINE 0.1 MG, LEVOTHYROXINE 0.025 MG PO SCH ×2 (06:30)
[2018-07-09] MEDS: INSULIN LISPRO SLIDING SCALE 100 UNITS/ML VIAL SUBQ PRN ×4 (06:42→20:58)
[2018-07-09] MEDS: BLOOD GLUCOSE MONITORING 1 DEV DEV FS SCH ×4 (07:30→20:57)
--- NOTE | 2018-07-09 07:30 | NUR ---
RECEIVED REPORT FROM REAGENT TENDER RN AT BEDSIDE, PT IS LETHARGIC, RESPONSIVE TO PAINFUL STIMULI ONLY, HR 93, BP 133/65, RR 20, O2 SAT 72%, FLACC 0, ETT TO VENT WITH SETTING AC/VC FIO2 100%, TV 450, R 20, PEEP 8, DIMINISHED LUNG SOUND SOLO. SR ON BOATING SAFETY OFFICER, CAPILLARY REFILL <3 SECONDS, LARGE DISTENDED ABDOMEN NOTED, ACTIVE BOWEL SOUNDS, NGT IN PLACE TO LEFT NARES, POSITIVE PLACEMENT CHECKED, NO RESIDUALS AT THIS TIME. INCONTINENT RANGEL CATHETER IN PLACE WITH CLOUDY YELLOW URINE VIA GRAVITY, SKIN IS INTACT, WARM AND DRY TO TOUCH, ANTONIA HUGGER IN PLACE, SEVERE WEAKNESS TO ALL EXTREMITIES, CENTRAL LINE TO RIJ, TLC, PATENT, RUNNING WITH LEVOPHED AT 24 MCG/MIN, DOPAMIN AT 30 MCG/MIN, AND CVP AT 20, IV SITE TO RIGHT AC, 20GA, LEFT HAND, 22GA, LEFT UPPER ARM 20GA, PATENT AND SL. HOB ELEVATED 30 DEGREES, SAFETY MEASURES IN PLACE, WILL CONTINUE TO MONITOR.
[2018-07-09] MEDS: DOPamine 400 MG/D5W PREMIX 250 ML IV SCH ×2 (08:11→14:14)
[2018-07-09] MEDS: DEXT 5% /NACL 0.9% 1,000 ML IV SCH (08:14)
--- NOTE | 2018-07-09 08:30 | NUR ---
SCHEDULED MEDICATION GIVEN VIA GT, ORAL CARE PROVIDED, POSITION CHANGED FOR OFF LOAD PRESSURE.
--- NOTE | 2018-07-09 08:38 | NUR ---
RECEIVED ON A [employer]runner Recycling[employer]APE R860 VENTILATOR PLUGGED INTO RED OUTLET TOLERATING WELL WITHOUT ADVERSE REACTIONS NOTED TO AN ENDOTRACHEAL TUBE #7.0 SECURED AT 20cm WITH AN ANCHOR FAST AMBU BAG AT [facility] LOC NON RESPONSIVE TO VERBAL COMMANDS RESPONSIVE TO SUCTIONING GAG REFLUX BREATH SOUNDS COARSE RHONCHI BILATERAL WITH GOOD CHEST RISE ENDOTRACHEAL SUCTION FOR LARGE THICK YELLOW WITH BLOOD STREAKED SECRETIONS AIRWAY PATENT
--- NOTE | 2018-07-09 08:53 | NUR ---
am meds not given, due to pt was crashing
[2018-07-09] MEDS ORDERED: MAG SULF 2000 MG/WATER PREMIX 100 ML IV SCH (09:00)
[2018-07-09] MEDS ORDERED: CALCIUM ACETATE 667 MG TAB GT SCH (09:00)
--- NOTE | 2018-07-09 09:03 | NUR ---
DR. CARRENO CAME IN TO SEE PT AT BEDSIDE, UPDATED PT'S CONDITION, WILL FOLLOW UP WITH NEW ORDERS.
[2018-07-09] MEDS: PANTOPRAZOLE 40 MG INJ VIAL IVP SCH (09:33)
[2018-07-09] MEDS: CARVEDILOL 6.25 MG TAB PO SCH ×2 (09:33→20:38)
[2018-07-09] MEDS: MEMANTINE 10 MG TAB PO SCH (09:33)
[2018-07-09] MEDS: DONEPEZIL 10 MG TAB PO SCH (09:33)
[2018-07-09] MEDS: LACTOBACILLUS RHAMNOSUS GG 1 EACH CAP NG SCH (09:34)
[2018-07-09] MEDS: METOLAZONE 5 MG TAB PO SCH ×2 (09:36→20:38)
[2018-07-09] MEDS: CLINICAL MONITORING MC SCH (09:37)
[2018-07-09] MEDS ORDERED: SODIUM FERRIC GLUCONATE 125 MG in NACL 0.9% 100 ML IV SCH (10:00)
--- NOTE | 2018-07-09 10:00 | NUR ---
DR. SALVADOR CAME IN TO SEE PT AT BEDSIDE, UPDATED PT'S CONDITION, WILL FOLLOW UP WITH NEW ORDERS.
[2018-07-09] MEDS ORDERED: ALBUTEROL SULFATE/IPRATROPIU 3 ML SOL IH PRN (10:35)
[2018-07-09] MEDS: SODIUM BICARBONATE 8.4% 50 MEQ in NACL 0.9% 1,000 ML IV SCH (10:53)
--- NOTE | 2018-07-09 11:05 | NUR ---
Recruiting Scheduler Note: I called patient's son Naldo Edwards , he stated he is available to meet today after 5pm. I explained to him I will leave office at 4pm and cannot meet with him and Evelia after 5pm today. He told me he will be available tomorrow at 9am. I called and spoke with patient's daughter Evelia Elam . She also stated she is available at 9am tomorrow. I called Naldo back and told him his sister Evelia will be coming to hospital at 9am tomorrow.
--- NOTE | 2018-07-09 12:00 | NUR ---
NO S/S OF DISTRESS, VSS, FLACC 0, ORAL CARE PROVIDED, POSITION CHANGED FOR OFF LOAD PRESSURE.
[2018-07-09] MEDS: ALBUTEROL SULFATE/IPRATROPIU 3 ML SOL IH PRN ×2 (12:14→17:22)
--- NOTE | 2018-07-09 12:14 | NUR ---
NO CHANGE LOC GOOD CHEST RISE AIRWAY PATENT HHN PRN THERAPY GIVEN FOR INCREASED SOB
[2018-07-09] MEDS: POLYVINYL ALCOHOL 1.4% OP 15 ML SOL OP SCH ×2 (12:39→17:16)
[2018-07-09] MEDS: NOREPINEPHRINE 16 MG in DEXTROSE 5% 250 ML IV PRN (12:41)
--- NOTE | 2018-07-09 14:00 | NUR ---
NO CHANGE OF CONDITION, VSS, FLACC 0, POSITION CHANGED FOR OFF LOAD PRESSURE.
--- NOTE | 2018-07-09 14:47 | NUR ---
NO CHANGE LOC GOOD CHEST RISE NO SUCTIONING AT THIS TIME PERSONAL CARE AIDE TO MONITOR DAUGHTER AT BEDSIDE
--- NOTE | 2018-07-09 16:00 | NUR ---
NO S/S OF DISTRESS, VSS, FLACC 0, ORAL CARE PROVIDED, PM CARE AND F/C CARE DONE, POSITION CHANGED FOR OFF LOAD PRESSURE.
--- NOTE | 2018-07-09 16:43 | NUR ---
CALLED DR LUCAS NUEGNT REVIEWED ABG SAMPLE REPORT SALES AND MARKETING ASSISTANT TO CALCULATE PER IDEAL WEIGHT FOR INCREASED VT PER MD OK TO INCREASE VT IF APPROPRIATE
[2018-07-09] MEDS: FUROSEMIDE 100 MG in DEXTROSE 5% 100 ML IV SCH (17:15)
--- NOTE | 2018-07-09 17:22 | NUR ---
GOOD CHEST RISE ENDOTRACHEAL SUCTION FOR SMALL THICK YELLOW SECRETIONS AIRWAY PATENT FAMILY AT BEDSIDE
--- NOTE | 2018-07-09 17:30 | NUR ---
PAGED DR. CARRENO REGARDING THE ABG RESULT, DR. SUAREZ ROCK CONTRACTOR AND CALLED BACK, RECOMMENDED TO CALL COMPOSITOR APPRENTICE FOR THE RESULT. PAGED DR. DE LA CRUZ, WAITING FOR CALL BACK.
--- NOTE | 2018-07-09 18:09 | NUR ---
DR. DE LA CRUZ CALLED BACK, UPDATED THE ABG RESULT TO HIM, HE SAID INCREASE TO PEEP 10, KEEP O2 SAT BETWEEN 90%-92%. CALLED RT, ROEL MADE AWARE.
--- NOTE | 2018-07-09 18:35 | NUR ---
PER ALECIA MANN INCREASED PEEP TO [id number] Addendum: 07/09/18 at 1836 by Kushal DIEGO LIU/MIRIAM BOLTON
--- NOTE | 2018-07-09 18:48 | NUR ---
DR. FRASER SPOKE TO PT'S SON ARIANNA AND TWO OTHER FAMILY MEMBERS REGARDING PT'S CODE STATUS, ARIANNA WOULD LIKE TO PUT PT ON MODIFIED CODE, NO CHEST COMPRESSION, NO SHOCK, BUT KEEP INTUBATED AND ALL THE MEDICATIONS TO KEEP PT'S ALIVE.
--- NOTE | 2018-07-09 19:16 | NUR ---
REPORT GIVEN TO MEDICARE BILLER NURSE FOR CONTINUE OF CARE, PT IS IN STABLE CONDITION AT THIS TIME.
--- NOTE | 2018-07-09 19:30 | NUR ---
RECEIVED REPORT FROM MORNING RN, LIU, FOR CONTINUITY OF CARE. PT AFEBRILE. RESPONSIVE TO PAIN. PT ABLE TO SLIGHTLY OPEN EYES IN RESPONSE TO PAIN. PUPILS ARE REACTIVE TO LIGHT. SLUGGISH AT 3MM. LUNG SOUNDS COARSE. ETT TO VENT WITH SETTINGS: FIO2 90%, TV 450, AC20 AND PEEP 10. RESPIRATIONS ARE EVEN AND UNLABORED. S1+S2 HEARD. PULSES ARE PALPABLE IN ALL EXTREMITIES. NGT THROUGH LEFT NARES. PLACEMENT CHECKED. NO RESIDUAL ASPIRATED AT THIS TIME. ABDOMEN ROUND, SOFT AND NONDISTENDED. BS ACTIVE. NO BM. RANGEL CATHETER IN PLACE. DRAINING CLEAR AND YELLOW URINE AT THIS TIME. RECEIVED PT WITH PERIPHERAL IV ACCESS ON RIGHT AC 22G. PT HAS RIGHT IJ CENTRAL LINE. LINES ARE PATENT AND ASYMPTOMATIC AT THIS TIME. RECEIVED PT ON LASIX AT 10ML/HR, BICARB AT 50ML/HR, DOPAMINE AT 10MCG/MIN, AND LEVOPHED AT 22MCG/MIN. KEPT HOB AT 30 DEGREES. BED AT LOWEST POSSIBLE POSITION. WILL CONTINUE TO MONITOR PT.
--- NOTE | 2018-07-09 22:30 | NUR ---
NO CHANGE IN PT'S CONDITION AT THIS TIME. PT STILL ON LEVOPHED AT 22MCG/MIN AND DOPAMINE AT 10MCG/MIN. PT TURNED AND REPOSITIONED. TOLERATED WELL. BP WNL. WILL ATTEMPT TO TAPER LEVOPHED.
[2018-07-10] VITALS (50 sets, daily range): BP systolic 60–126; BP diastolic 20–78
--- NOTE | 2018-07-10 00:07 | NUR ---
PT APPEARED TO BE TOLERATING THE DECREASE IN LEVOPHED. WILL CONTINUE TO TITRATE DOWN TOLERATED. PT AFEBRILE. TEMPERATURE IS 97.7 AT THIS TIME. FLACC 0. DOES NOT APPEAR TO BE EXPERIENCING ANY DISCOMFORT AT THIS TIME.
[2018-07-10] MEDS: DOPamine 400 MG/D5W PREMIX 250 ML IV SCH ×2 (00:24→08:53)
[2018-07-10] MEDS: NOREPINEPHRINE 16 MG in DEXTROSE 5% 250 ML IV PRN (01:18)
--- NOTE | 2018-07-10 02:18 | NUR ---
VS STABLE AT THIS TIME ASIDE FROM OXYGEN SATURATION AT 70S. AWARE SINCE IN THE AM. FLACC 0. PT DENIES ANY DISCOMFORT AT THIS TIME. TURNED AND REPOSITIONED. PT STILL HAS MINIMAL URINARY OUTPUT DESPITE BEING ON LASIX DRIP
[2018-07-10] MEDS: levETIRAcetam 1,000 MG in NACL 0.9% 100 ML IV SCH (04:09)
--- NOTE | 2018-07-10 04:15 | NUR ---
MORNING CARE PROVIDED TO PT. TOLERATED BEING TURNED FAIRLY. OXYGEN SATURATION STILL LOW. ALL SAFETY PRECAUTIONS ARE KEPT IN PLACE. PERIPHERAL IV ON THE LEFT WRIST STILL INTACT AND ASYMPTOMATIC.
--- NOTE | 2018-07-10 05:40 | NUR ---
RESPIRATIONS ARE EVEN AND UNLABORED. PT DOES NOT APPEAR TO BE EXPERIENCING ANY SOB. FLACC 0. PT DOES NOT APPEAR TO BE EXPERIENCING ANY DISCOMFORT WELL.
[2018-07-10] MEDS: CLINDAMYCIN PHOS 600MG/D5W PM 50 ML IV SCH (05:43)
[2018-07-10] MEDS: FUROSEMIDE 100 MG in DEXTROSE 5% 100 ML IV SCH (05:44)
[2018-07-10] MEDS: LEVOTHYROXINE 0.1 MG, LEVOTHYROXINE 0.025 MG PO SCH ×2 (05:44)
[2018-07-10 06:13] LABS: FERRITIN 42 ng/mL (15 - 150)
--- NOTE | 2018-07-10 07:00 | NUR ---
RECIVED PT ON VENT WITH SETTINGS CHARTED BREATH SOUNDS PRESENT BILAT SXN PT WITH MIN AMT OFF WHITE SECS ETT SECURE AMBU BAG AT BEDSIDE VENT PLUGGED INTO RED OUTLET WILL CONTINUE TO MONITOR PT ON VENT
--- NOTE | 2018-07-10 07:08 | NUR ---
REPORT GIVEN TO MORNING RN FOR CONTINUITY OF CARE. VS STABLE AT THIS TIME.
[2018-07-10] MEDS: ALBUTEROL SULFATE/IPRATROPIU 3 ML SOL IH PRN (07:23)
[2018-07-10] MEDS: BLOOD GLUCOSE MONITORING 1 DEV DEV FS SCH (08:00)
--- NOTE | 2018-07-10 08:00 | NUR ---
PATIENT OPENS EYES TO PAIN BUT NO TRACKING, NO MOTOR MOVEMENTS, INTUBATED ON VENTILATOR FIO2 100% TIDAL VOLUME 450 PEEP 10 AC 20. COURSE ON AUSCULTAION ON ALL ANTERIOR CHEST CROOK, SINUS RHYTHM ON MONITOR, WITH NASOGASTRIC TUBE LEFT NARES-PATENT ON AUSCULTATION AND NO ASPIRATES, SOFT ABDOMEN, WITH RANGEL CATHETER DRAINING YELLOW URINE OUTPUT TO UROBAG, WITH CENTRAL LINE TRIPLE LUMEN RIGHT INTERNAL JUGULAR ,DOPAMINE INFUSING 10MCG/KG/MIN. , LEVOPHED AT 18MCG/MIN. 71 KGS. IN THE IV PUMP, NS 1L + 2 AMPULES SODIUM BICARBONATE AT 50CC/HR. INFUSING, PERIPHERAL LINES: GAUGE 22 AT RIGHT ARM-LASIX DRIP 10MGS/HR. INFUSING, ALL SITES CLEAN. BOTH LEGS WITH SCDs, MILD PURPLISH DISCOLORATION ON LEFT NECK AND LEFT ARM BOTH MODERATE SIZES.
[2018-07-10] MEDS: PANTOPRAZOLE 40 MG INJ VIAL IVP SCH (08:50)
[2018-07-10] MEDS: METOLAZONE 5 MG TAB PO SCH (08:50)
[2018-07-10] MEDS: DONEPEZIL 10 MG TAB PO SCH (08:50)
[2018-07-10] MEDS: LACTOBACILLUS RHAMNOSUS GG 1 EACH CAP NG SCH (08:50)
[2018-07-10] MEDS: MEMANTINE 10 MG TAB PO SCH (08:50)
[2018-07-10] MEDS: CLINICAL MONITORING MC SCH (08:51)
[2018-07-10] MEDS: POLYVINYL ALCOHOL 1.4% OP 15 ML SOL OP SCH (08:51)
[2018-07-10] MEDS: SODIUM BICARBONATE 8.4% 50 MEQ in NACL 0.9% 1,000 ML IV SCH (08:52)
[2018-07-10] MEDS: CARVEDILOL 6.25 MG TAB PO SCH (08:57)
--- NOTE | 2018-07-10 09:45 | NUR ---
FOLLOWED UP WITH LABORATORY STAFF ABOUT PATIENT'S ORDERED TESTS THERE IS NO RESULT UNTIL NOW.
--- NOTE | 2018-07-10 10:48 | NUR ---
DR. NUGENT INFORMED OF PATIENT'S HEART RATE AND BP, LEFT A MESSAGE FOR ARIANNA THE SON ALSO
--- NOTE | 2018-07-10 10:51 | NUR ---
PATIENT CHECKED AGAIN THIS TIME WITH HEART RATE FROM 50s TO 40s. RNs CANNOT PALPATE PULSE. RADHA MURPHY CALLED. PHYSICIANS HERE. PATIENT IS MODIFIED CODE ONLY ACLS DRUGS Addendum: 07/10/18 at 1153 by Omaira Kwok RN 1152 HOURS- PATIENT CHECKED AGAIN FOR PULSE AND NO PULSE BY PALPATION AND DOPPLER SO RADHA MURPHY CALLED
--- NOTE | 2018-07-10 10:51 | NUR ---
PT'S HR DECREASED TO 44, NO PULSE WITH DOPPLER, CODE BLUE CALLED, NO CHEST COMPRESSION AT THIS TIME DUE TO PT IS ON MODIFIED CODE. DR. NUGENT WITH OTHER RESIDENTS AND METAL FABRICATION SUPERVISOR AT BEDSIDE.
[2018-07-10] MEDS ORDERED: NACL 0.9% 500 ML IV SCH (10:55)
--- NOTE | 2018-07-10 10:59 | NUR ---
DR. NUGENT PRONOUNCED TIME OF AT 1059.
--- NOTE | 2018-07-10 11:00 | NUR ---
FAMILY AT BEDSIDE MADE AWARE BY THE ICU TEAM OF THE SITUATION
[2018-07-10 11:17] LABS: ANION GAP 19.4 (8-16); CHLORIDE 94 mmol/L (98-107); CREATININE 3.2 mg/dL (0.6-1.3); GLUCOSE 156 mg/dL (74-106); SODIUM SERUM 127 mmol/L (136-145); UREA NITROGEN, BLOOD 56 mg/dL (7-18)
[2018-07-10 11:19] LABS: POTASSIUM 5.4 mmol/L (3.5-5.1)
--- NOTE | 2018-07-10 11:23 | NUR ---
INFORMED [facility]. [facility] WILL NOT TAKE THIS PATIENT CASE# [id number]
--- NOTE | 2018-07-10 11:26 | NUR ---
CALLED [facility]ICE. AWAITING CALL BACK
[2018-07-10 11:38] LABS: MAGNESIUM 2.3 mg/dL (1.8-2.4); PHOSPHORUS 7.1 mg/dL (2.5-4.9)
--- NOTE | 2018-07-10 13:38 | NUR ---
Rail Bonder Note: Per patient's son Naldo Edwards , he has contacted [facility], phone number and is making arrangements.
--- NOTE | 2018-07-10 14:01 | NUR ---
CALLED [facility] AGAIN AND PATIENT STILL ON THE LIST FOR [employer] TO CALL BACK
--- NOTE | 2018-07-10 15:32 | NUR ---
Ceramics Test Engineer Note: I met with patient's son Naldo Edwards and patient's daughter Evelia Elam to provide counseling services (since there is history of family conflict among them), obtain information about their knowledge of patient's medical condition, and their medical wishes . Both Naldo and Evelia speak [place]. Throughout meeting there were multiple times when both Naldo and Evelia insulted, interrupted, and argued with each other. There were times when Evelia was tearful and Naldo appeared tearful as well. I was able to intervene as needed in order to deescalate situation. Naldo stated he understands patient is in critical condition and has had good communication with MDs. He told me he assumed his sister Evelia was also aware of patient's critical condition. She replied she was not and accused him of instructed our nursing staff to withhold information from her. Naldo denied doing this. I explained to Evelia that none of the nurses had told me Naldo was prohibiting information from Evelia. I told her that on the contrary, Naldo had requested I speak with Evelia and relay information about our conversation previous conversation. I encouraged Evelia to speak with MDs regarding patient's prognosis. They both shared with me their version of event that occurred at Naldo's home prior to patient's hospitalization. They blamed each other. I advised them to make effort to set aside their personal differences and to try to collaborate together to fulfill patient's final wish/wishes. They both expressed that patient wanted to be buried in [place]. By the end of meeting, Naldo and Evelia came to an agreement to try to cooperate with each other to fulfill patient's wish of being bury in [place]. They both stated they were going to attempt to meet with their other sisters Teagan and Evelia to find out if they could come to a final decision about whether they wanted to obtain hospice services or not. They are also planning to discuss arrangements as a family. I thanked them for making these type of efforts and encouraged them to contact myself for ongoing counseling services during patient's hospitalization. They thanked me for my assistance. Addendum: 07/10/18 at 1624 by Caterina Colmenares SS I met Heena for family meeting at 9:05am today.
--- NOTE | 2018-07-10 16:24 | NUR ---
Client Success Specialist Note: I provided patient's adult children (Naldo, Evelia, and Teagan) with bereavement group support information. They were appreciative.
--- NOTE | 2018-07-10 17:30 | NUR ---
NURSING BUILDING REPAIR MAINTENANCE SUPERVISOR AWARE THAT STILL AWAITING CALL BACK FROM GLUE MACHINE OPERATOR AND SHE CONTACTED [facility]ACHINE [facility]PER[facility] OFFICE
--- NOTE | 2018-07-10 17:54 | NUR ---
GOT A CALL BACK FROM FILTER TANK OPERATOR PAPO SILVA AND HE RELEASED THE BODY. CASE NO. [id number]
--- NOTE | 2018-07-10 19:13 | NUR ---
[facility] HERE TO PICKUP PATIENT
[2018-07-10] MEDS ORDERED: LEVOFLOXACIN 250 MG/D5 PREMIX 50 ML IV SCH (21:00)
[2018-07-11 04:06] LABS: TRANSFERRIN 202 mg/dL (200-370)
== END 2018-07-10 10:59 | disposition expired | DRG 871 ==
LOC: MED 12:56 → MIC 15:38
PROVIDERS: ADMIT General Practice; ATTEND General Practice
PROC: 5A1945Z Respiratory Ventilation, 24-96 Consecutive Hours (ICD-10-PCS; principal; 2018-07-06)
PROC: 5A12012 Performance of Cardiac Output, Single, Manual (ICD-10-PCS; 2018-07-06)
PROC: 0BH17EZ Insertion of Endotracheal Airway into Trachea, Via Natural or Artificial Opening (ICD-10-PCS; 2018-07-06)
PROC: 0DH67UZ Insertion of Feeding Device into Stomach, Via Natural or Artificial Opening (ICD-10-PCS; 2018-07-06)
PROC: 05HM33Z Insertion of Infusion Device into Right Internal Jugular Vein, Percutaneous Approach (ICD-10-PCS; 2018-07-06)
PROC: B543ZZA Ultrasonography of Right Jugular Veins, Guidance (ICD-10-PCS; 2018-07-06)
PROC: 0W993ZZ Drainage of Right Pleural Cavity, Percutaneous Approach (ICD-10-PCS; 2018-07-08)
DX: A41.9 Sepsis, unspecified organism (principal); J69.0 Pneumonitis due to inhalation of food and vomit; J96.02 Acute respiratory failure with hypercapnia; E43 Unspecified severe protein-calorie malnutrition; N17.0 Acute kidney failure with tubular necrosis; J96.01 Acute respiratory failure with hypoxia; E87.1 Hypo-osmolality and hyponatremia; G93.1 Anoxic brain damage, not elsewhere classified; G90.8 Other disorders of autonomic nervous system; E83.42 Hypomagnesemia; E03.9 Hypothyroidism, unspecified; E78.5 Hyperlipidemia, unspecified; I10 Essential (primary) hypertension; I46.9 Cardiac arrest, cause unspecified; E11.65 Type 2 diabetes mellitus with hyperglycemia; E83.51 Hypocalcemia; D50.9 Iron deficiency anemia, unspecified; Z88.0 Allergy status to penicillin; Z79.84 Long term (current) use of oral hypoglycemic drugs; Z79.899 Other long term (current) drug therapy; Z68.32 Body mass index [BMI] 32.0-32.9, adult
CPT/HCPCS: 36415; 36600; 43753; 70450; 71045; 71250; 76604; 76942; 80048; 80053; 80076; 81001; 82009; 82140; 82150; 82728; 82803; 82948; 83036; 83540; 83605; 83690; 83735; 83880; 84100; 84155; 84436; 84443; 84479; 84484; 85025; 85045; 85610; 85730; 87040; 87070; 87075; 87081; 87086; 87102; 87205; 88305; 88313; 88342; 89220; 92950; 93005; 93925; 93970; 94003; 94640; 95816; 96374; 96375; 99291; C9113; J1265; J1642; J1644; J1815; J1940; J1953; J1956; J2370; J2916; J2930; J3475; J3490; J7030; J7042; J7060; J7620; Q0092